=== PATIENT | male | born 1980 | race Caucasian/White ===

== ENCOUNTER 2020-05-19 11:41 | Emergency (ER) | payer OTHER ==
[~2020-05-19] VITALS: Ht 175.3 cm; Wt 97.5 kg
[2020-05-19] MEDS ORDERED: MECLIZINE HCL25 M1 PO (13:20)
[2020-05-19 13:28] VITALS: BP 132/89
== END 2020-05-19 13:30 | disposition home or self-care (01) ==
LOC: ER 11:41
DX: H81.10 Benign paroxysmal vertigo, unspecified ear (principal); R19.7 Diarrhea, unspecified; E53.8 Deficiency of other specified B group vitamins; Z20.828 Contact with and (suspected) exposure to other viral communicable diseases